=== PATIENT | female | born 1950 | race Caucasian/White ===

== ENCOUNTER 2018-02-11 21:17 | Emergency (ER) | payer MEDICARE, OTHER ==
[~2018-02-11] VITALS: Ht 152.4 cm; Wt 79.5 kg
[2018-02-11 21:32] LABS: GLUCOSE,POINT OF CARE 267 MG/DL (70-110)
[2018-02-11] MEDS ORDERED: SENN-34 PO (21:34)
[2018-02-11] MEDS ORDERED: ALBU8.5H8 IH (21:34)
[2018-02-11] MEDS ORDERED: LISI-661 PO (21:34)
[2018-02-11] MEDS ORDERED: FLUT16H NASAL (21:34)
[2018-02-11] MEDS ORDERED: ATOR40TA28 PO (21:34)
[2018-02-11] MEDS ORDERED: DULO20CA30 PO ×2 (21:34)
[2018-02-11] MEDS ORDERED: PREG75 PO (21:34)
[2018-02-11] MEDS ORDERED: METF-514 PO (21:34)
[2018-02-11] MEDS ORDERED: LORA10TA7 PO (21:34)
[2018-02-11] MEDS ORDERED: TERB250 PO (21:34)
[2018-02-11] MEDS ORDERED: BISA5TAB12 PO (21:34)
[2018-02-11] MEDS ORDERED: ASPI81TA42 PO (21:34)
[2018-02-11] MEDS ORDERED: CHOL200016 PO (21:34)
[2018-02-11] MEDS ORDERED: SITA100 PO (21:34)
[2018-02-11] MEDS ORDERED: INSNOV SQ (21:34)
[2018-02-11] MEDS ORDERED: INSLAN SQ (21:34)
[2018-02-11] MEDS ORDERED: NAPR-58 PO (21:34)
[2018-02-11] MEDS ORDERED: GABA-529 PO (21:34)
[2018-02-11] MEDS ORDERED: MOME13HF IH (21:34)
[2018-02-11] MEDS ORDERED: MECLIZINE HCL 25 MG TABLET PO ONE (22:00)
[2018-02-11] MEDS ORDERED: KETOROLAC TROMETHAMINE 30 MG/ML VIAL IVP ONE (22:00)
[2018-02-11] MEDS ORDERED: INSULIN REGULAR, HUMAN 100 UNITS/ML IVP ONE (22:00)
[2018-02-11] MEDS ORDERED: ACETAMINOPHEN 500 MG TABLET PO ONE (22:00)
[2018-02-11] MEDS ORDERED: SODIUM CHLORIDE 0.9% 1,000 ML IV ONE (22:00)
[2018-02-11] MEDS ORDERED: GuaiFENesin/D-METHORPHAN [SUGAR-FREE] 200-20MG/10 ML SYRUP UDCUP PO ONE (22:00)
[2018-02-11 22:16] LABS: BASOPHILS % (AUTO) 0.7 % (0.0-2.0); EOSINOPHILS % (AUTO) 4.9 % (1.0-6.0); HEMATOCRIT 30.9 % (36-46); HEMOGLOBIN 10.7 g/dL (12.0-16.0); LYMPHOCYTES # (AUTO) 1.6 K/uL (1.0-4.8); LYMPHOCYTES % (AUTO) 25.4 % (22.0-44.0); MEAN CORPUSCULAR HEMOGLOBIN 32.1 pg (26.0-34.0); MEAN CORPUSCULAR HGB CONC 34.6 G/dL (31.0-37.0); MEAN CORPUSCULAR VOLUME 93 fL (80-100); MONOCYTES # (AUTO) 0.7 K/uL (0.1-1.0); MONOCYTES % (AUTO) 10.2 % (2.0-9.0); NEUTROPHILS # (AUTO) 3.8 K/uL (1.8-7.7); NEUTROPHILS % (AUTO) 58.8 % (40.0-70.0); PLATELET COUNT (AUTO) 353 K/uL (150-450); RED BLOOD CELL COUNT(AUTO) 3.32 MIL/uL (4.00-5.20); RED CELL DISTRIBUTION WIDTH 12.4 % (11.5-14.5)
[2018-02-11 22:38] LABS: ANION GAP 8 mmol/L (8-16); CALCIUM, TOTAL 8.9 mg/dL (8.8-10.5); CARBON DIOXIDE 25 mmol/L (22-29); CHLORIDE 94 mmol/L (98-107); CREATININE 0.85 mg/dL (0.60-1.30); GLOMERULAR FILTR. RATE CALC > 60 mL/min (>60); GLUCOSE,RANDOM 251 mg/dL (70-110); POTASSIUM 4.5 mmol/L (3.5-5.1); SODIUM SERUM 127 mmol/L (136-145); UREA NITROGEN, BLOOD 26 mg/dL (7-18)
[2018-02-11 22:42] LABS: ALANINE AMINOTRANSFERASE 31 U/L (12-78); ALBUMIN 3.6 g/dL (3.4-5.0); ALKALINE PHOSPHATASE 126 U/L (46-116); ASPARTATE AMINOTRANSFERASE 19 U/L (15-37); BILIRUBIN,TOTAL 0.4 mg/dL (0.1-1.0)
[2018-02-11 22:43] LABS: B-TYPE NATRIURETIC PEPTIDE 11 pg/mL (0-100)
[2018-02-11 22:49] LABS: ACETONE,BLOOD NEGATIVE (NEGATIVE)
[2018-02-11 23:37] VITALS: BP 140/88
[2018-02-11 23:47] LABS: GLUCOSE,POINT OF CARE 96 MG/DL (70-110)
== END 2018-02-11 23:52 | disposition home or self-care (01) ==
LOC: EMS 21:17
DX: J40 Bronchitis, not specified as acute or chronic (principal); E11.65 Type 2 diabetes mellitus with hyperglycemia; E87.1 Hypo-osmolality and hyponatremia; E78.00 Pure hypercholesterolemia, unspecified; F32.9 Major depressive disorder, single episode, unspecified; I10 Essential (primary) hypertension; R42 Dizziness and giddiness; I25.10 Atherosclerotic heart disease of native coronary artery without angina pectoris; Z79.4 Long term (current) use of insulin; Z79.82 Long term (current) use of aspirin; Z88.0 Allergy status to penicillin; Z79.899 Other long term (current) drug therapy
CPT/HCPCS: 36415; 71045; 80053; 82009; 82962; 83880; 84484; 85025; 93005; 96361; 96374; 96375; 99285; J1815; J1885; J7030

== ENCOUNTER 2018-03-11 09:26 | Emergency (ER) | payer MEDICARE, OTHER ==
[~2018-03-11] VITALS: Ht 152.4 cm; Wt 79.5 kg
[~2018-03-11 09:26] MED LIST: ALBU8.5H8 IH; ASPI81TA42 PO; ATOR40TA28 PO; BISA5TAB12 PO; CHOL200016 PO; DULO20CA30 PO; FLUT16H NASAL; GABA-529 PO; INSLAN SQ; INSNOV SQ; LISI-661 PO; LORA10TA7 PO; METF-514 PO; MOME13HF IH; NAPR-58 PO; PREG75 PO; SENN-34 PO; SITA100 PO; TERB250 PO
[2018-03-11 10:12] LABS: GLUCOSE,POINT OF CARE 24 MG/DL (70-110)
[2018-03-11] MEDS ORDERED: DEXTROSE 50%-WATER 25 GM/50 ML SYRINGE IVP ONE (10:15)
[2018-03-11 11:07] LABS: GLUCOSE,POINT OF CARE 309 MG/DL (70-110)
[2018-03-11 11:15] LABS: BASOPHILS % (AUTO) 0.2 % (0.0-2.0); EOSINOPHILS % (AUTO) 1.7 % (1.0-6.0); HEMATOCRIT 34.9 % (36-46); HEMOGLOBIN 12.1 g/dL (12.0-16.0); LYMPHOCYTES # (AUTO) 0.6 K/uL (1.0-4.8); LYMPHOCYTES % (AUTO) 8.4 % (22.0-44.0); MEAN CORPUSCULAR HEMOGLOBIN 32.8 pg (26.0-34.0); MEAN CORPUSCULAR HGB CONC 34.8 G/dL (31.0-37.0); MEAN CORPUSCULAR VOLUME 94 fL (80-100); MONOCYTES # (AUTO) 0.6 K/uL (0.1-1.0); MONOCYTES % (AUTO) 7.5 % (2.0-9.0); NEUTROPHILS # (AUTO) 6.3 K/uL (1.8-7.7); NEUTROPHILS % (AUTO) 82.2 % (40.0-70.0); PLATELET COUNT (AUTO) 330 K/uL (150-450); RED CELL DISTRIBUTION WIDTH 12.9 % (11.5-14.5)
[2018-03-11] MEDS ORDERED: SODIUM CHLORIDE 0.9% 1,000 ML IV ONE (11:15)
[2018-03-11 11:24] LABS: ANION GAP 7 mmol/L (8-16); CALCIUM, TOTAL 9.1 mg/dL (8.8-10.5); CARBON DIOXIDE 25 mmol/L (22-29); CHLORIDE 97 mmol/L (98-107); CREATININE 0.91 mg/dL (0.60-1.30); GLOMERULAR FILTR. RATE CALC > 60 mL/min (>60); GLUCOSE,RANDOM 259 mg/dL (70-110); POTASSIUM 4.1 mmol/L (3.5-5.1); SODIUM SERUM 129 mmol/L (136-145); UREA NITROGEN, BLOOD 19 mg/dL (7-18)
[2018-03-11 11:30] LABS: ACETAMINOPHEN < 2 mcg/mL (10-30); ALANINE AMINOTRANSFERASE 31 U/L (12-78); ALBUMIN 3.7 g/dL (3.4-5.0); ALKALINE PHOSPHATASE 119 U/L (46-116); ASPARTATE AMINOTRANSFERASE 21 U/L (15-37); BILIRUBIN,TOTAL 0.3 mg/dL (0.1-1.0); SALICYLATE < 2.8 mg/dL (2.8-20.0); TOTAL PROTEIN, SERUM 7.4 g/dL (6.4-8.2)
[2018-03-11 13:19] LABS: APPEARANCE,URINE CLEAR (CLEAR); BILIRUBIN,URINE NEGATIVE (NEGATIVE); GLUCOSE, URINE (UA) 100 mg/dL (NEGATIVE); KETONES,URINE NEGATIVE (NEGATIVE); OCCULT BLOOD,URINE NEGATIVE (NEGATIVE); PROTEIN,URINE NEGATIVE (NEGATIVE)
[2018-03-11 13:20] LABS: LEUKOCYTE ESTERASE ,URINE NEGATIVE (NEGATIVE); NITRATE,URINE NEGATIVE (NEGATIVE); UROBILINOGEN,URINE 0.2 mg/dL (<=1.0)
[2018-03-11 13:21] LABS: AMPHET/METH SCREEN,URINE NEGATIVE (NEGATIVE); BACTERIA,URINE Moderate /HPF (None Seen); BARBITURATE SCREEN, URINE NEGATIVE (NEGATIVE); BENZODIAZEPINES SCREEN,URINE NEGATIVE (NEGATIVE); CANNABINOID SCREEN,URINE NEGATIVE (NEGATIVE); COCAINE SCREEN,URINE NEGATIVE (NEGATIVE); METHADONE SCREEN, URINE NEGATIVE (NEGATIVE); OPIATE SCREEN,URINE NEGATIVE (NEGATIVE); RBC,URINE 0-2 /HPF (0-2); SQUAMOUS EPITHELIAL CELL,UR Few /LPF (None Seen); WBC,URINE 0-2 /HPF (0-5)
[2018-03-11 13:22] LABS: PHENCYCLIDINE SCREEN,URINE NEGATIVE (NEGATIVE)
[2018-03-11 13:43] LABS: GLUCOSE,POINT OF CARE 108 MG/DL (70-110)
[2018-03-11 15:13] VITALS: BP 157/78
== END 2018-03-11 15:17 | disposition home or self-care (01) ==
LOC: EMS 09:26
DX: E11.649 Type 2 diabetes mellitus with hypoglycemia without coma (principal); E87.1 Hypo-osmolality and hyponatremia; G93.40 Encephalopathy, unspecified; R82.71 Bacteriuria; R41.82 Altered mental status, unspecified; J45.909 Unspecified asthma, uncomplicated; I25.10 Atherosclerotic heart disease of native coronary artery without angina pectoris; E78.00 Pure hypercholesterolemia, unspecified; I10 Essential (primary) hypertension; Z79.4 Long term (current) use of insulin; Z88.0 Allergy status to penicillin
CPT/HCPCS: 36415; 70450; 71045; 80053; 80307; 81001; 82962; 84484; 85025; 87077; 87086; 93005; 96374; 99285; G0480 ×2; G0481; J7030

== ENCOUNTER 2018-03-23 11:24 | Emergency (ER) | payer MEDICARE, OTHER ==
[~2018-03-23] VITALS: Ht 154.9 cm; Wt 69.5 kg
[2018-03-23 11:43] LABS: GLUCOSE,POINT OF CARE 57 MG/DL (70-110)
[2018-03-23 11:58] LABS: BASOPHILS % (AUTO) 0.2 % (0.0-2.0); EOSINOPHILS % (AUTO) 0.7 % (1.0-6.0); HEMATOCRIT 32.3 % (36-46); HEMOGLOBIN 11.3 g/dL (12.0-16.0); LYMPHOCYTES # (AUTO) 1.4 K/uL (1.0-4.8); LYMPHOCYTES % (AUTO) 9.3 % (22.0-44.0); MEAN CORPUSCULAR HEMOGLOBIN 32.5 pg (26.0-34.0); MEAN CORPUSCULAR HGB CONC 34.8 G/dL (31.0-37.0); MEAN CORPUSCULAR VOLUME 93 fL (80-100); MONOCYTES # (AUTO) 1.4 K/uL (0.1-1.0); MONOCYTES % (AUTO) 9.8 % (2.0-9.0); NEUTROPHILS # (AUTO) 11.8 K/uL (1.8-7.7); PLATELET COUNT (AUTO) 422 K/uL (150-450); RED BLOOD CELL COUNT(AUTO) 3.46 MIL/uL (4.00-5.20)
[2018-03-23 12:13] LABS: GLUCOSE,POINT OF CARE 74 MG/DL (70-110)
[2018-03-23 12:20] LABS: ALANINE AMINOTRANSFERASE 39 U/L (12-78); ALBUMIN 3.5 g/dL (3.4-5.0); ALKALINE PHOSPHATASE 112 U/L (46-116); ANION GAP 6 mmol/L (8-16); ASPARTATE AMINOTRANSFERASE 26 U/L (15-37); BILIRUBIN,TOTAL 0.3 mg/dL (0.1-1.0); CARBON DIOXIDE 29 mmol/L (22-29); CHLORIDE 96 mmol/L (98-107); GLOMERULAR FILTR. RATE CALC > 60 mL/min (>60); POTASSIUM 3.5 mmol/L (3.5-5.1); SODIUM SERUM 131 mmol/L (136-145); TOTAL PROTEIN, SERUM 7.5 g/dL (6.4-8.2); UREA NITROGEN, BLOOD 20 mg/dL (7-18)
[2018-03-23 12:28] LABS: GLUCOSE,RANDOM 37 mg/dL (70-110)
[2018-03-23 13:22] LABS: GLUCOSE,POINT OF CARE 50 MG/DL (70-110)
[2018-03-23] MEDS ORDERED: DEXTROSE 5%-0.9% SODIUM CHL 1,000 ML IV ONE (13:30)
[2018-03-23 14:12] LABS: GLUCOSE,POINT OF CARE 71 MG/DL (70-110)
[2018-03-23] MEDS ORDERED: DEXTROSE 50%-WATER 25 GM/50 ML SYRINGE IVP ONE ×2 (14:45→15:00)
[2018-03-23] MEDS ORDERED: DEXTROSE 10%-WATER 1,000 ML IV SCH (14:45)
[2018-03-23 15:13] LABS: GLUCOSE,POINT OF CARE 173 MG/DL (70-110)
[2018-03-23 15:34] LABS: APPEARANCE,URINE CLEAR (CLEAR); BILIRUBIN,URINE NEGATIVE (NEGATIVE); GLUCOSE, URINE (UA) 100 mg/dL (NEGATIVE); KETONES,URINE NEGATIVE (NEGATIVE); LEUKOCYTE ESTERASE ,URINE TRACE (NEGATIVE); NITRATE,URINE NEGATIVE (NEGATIVE); OCCULT BLOOD,URINE NEGATIVE (NEGATIVE); PROTEIN,URINE NEGATIVE (NEGATIVE); UROBILINOGEN,URINE 0.2 mg/dL (<=1.0)
[2018-03-23 15:52] LABS: GLUCOSE,POINT OF CARE 214 MG/DL (70-110)
[2018-03-23 16:18] LABS: RBC,URINE 0-2 /HPF (0-2); WBC,URINE 0-2 /HPF (0-5)
[2018-03-23 16:19] LABS: BACTERIA,URINE None Seen /HPF (None Seen); SQUAMOUS EPITHELIAL CELL,UR Few /LPF (None Seen)
[2018-03-23 17:02] VITALS: BP 145/73
[2018-03-23 19:23] LABS: GLUCOSE,POINT OF CARE 241 MG/DL (70-110)
== END 2018-03-23 17:41 | disposition short-term general hospital (02) ==
LOC: EMS 11:25
DX: E11.649 Type 2 diabetes mellitus with hypoglycemia without coma (principal); J45.909 Unspecified asthma, uncomplicated; I25.10 Atherosclerotic heart disease of native coronary artery without angina pectoris; E78.00 Pure hypercholesterolemia, unspecified; I10 Essential (primary) hypertension; Z88.0 Allergy status to penicillin; Z79.4 Long term (current) use of insulin; Z79.82 Long term (current) use of aspirin
CPT/HCPCS: 36415; 71045; 80053; 81001; 82948; 82962; 84484; 85025; 93005; 96361; 96374; 99285; J7042